=== PATIENT | female | born 1950 | race Caucasian/White ===

== ENCOUNTER → 2017-07-26 | Outpatient (CLI) | payer OTHER ==
--- NOTE | 2017-07-26 10:42 | VAS ---
HISTORY: Concern for carotid artery stenosis. CVA. Technique: Multiple faust scale and color flow Doppler images of the right and left carotid arterial s ystem were obtained. The vertebral arterial system was evaluated as well. Findings: Nonocclusive color flow Doppler is seen throughout the right and left carotid arterial system. No hem odynamically significant carotid arterial stenosis is seen based on velocity criteria. There is mild to moderate atherosclerosis and plaque formation of the bilateral carotid bulbs and proximal ICAs wit h associated intimal thickening but without evidence for high-grade stenosis (>70%) or occlusion of t he carotid arteries. The right and left vertebral artery demonstrate antegrade flow. IMPRESSION: [id number] atherosclerosis and plaque formation of the bilateral carotid bulbs and proximal ICA s with associated carotid intimal thickening and with elevated velocities seen in the left internal c arotid artery in the 50-69% stenosis range, based on carotid velocity. Appropriate, antegrade, vertebral arterial flow. Peak right ICA velocity: 89 cm/sec Peak right CCA velocity: 78 cm/sec Peak left ICA velocity: 123 cm/sec Peak left CCA velocity: 56 cm/sec Right ICA to CCA ratio: 1.7. Left ICA to CCA ratio: 2.4. Reported By:
--- NOTE | 2017-07-26 11:04 | MRI ---
MRA HEAD WITHOUT CONTRAST CLINICAL HISTORY: 67-year-old female with headache and blurred vision. COMPARISONS: None. TECHNIQUE: 3-D time of flight magnetic resonance angiographic images of the [place] of [place] were obt ained and presented as maximum intensity projection images in rotating format. FINDINGS: Right dominant vertebral artery. The basilar artery is normal in appearance and gives off normal bila teral superior cerebellar and left posterior cerebral arteries. origin right posterior cerebral artery supplied by moderate caliber right posterior communicating artery. Left posterior communicati ng artery is not visualized. The internal carotid arteries are normal from the distal cervical segmen ts to the carotid terminus. The middle and left anterior cerebral arteries are normal in course and c aliber. Dominant left A1 with diminutive caliber right A1 segment. There is a small caliber anterior communicating artery. IMPRESSION: 1. No aneurysm, high-grade stenosis, complete occlusion, dissection or vascular malformation. 2. Normal anatomic vascular variants as described above. Reported By:
--- NOTE | 2017-07-26 11:23 | MRI ---
MRI BRAIN WITHOUT CONTRAST CLINICAL HISTORY: 67-year-old female with headache and blurred vision. COMPARISON: None. TECHNIQUE: Multiplanar, multisequence MR images of the brain were obtained without contrast. FINDINGS: There is no evidence of diffusion restriction. The craniocervical junction is normal. Parti ally empty sella. Pituitary and optic nerve complex are otherwise normal. Multifocal confluent and pu nctate T2 FLAIR signal hyperintensities are present within the periventricular and supraventricular w mirna matter that are nonspecific in appearance but most likely to represent microvascular white matte r ischemic changes. Normal signal characteristics and morphology are demonstrated within the cerebral cortex, corpus callosum, deep faust nuclei, brainstem and cerebellum. The major vascular flow voids, to include the dural venous sinuses, are intact. No abnormal susceptibility on gradient imaging. Age advanced cortical volume loss is present, with commensurate sulcal and ventricular prominence. The ba silar cisterns are normal. The orbits and globes are within normal limits. The paranasal sinuses, tympanic cavities and mastoids are clear. IMPRESSION: 1. No acute ischemic or hemorrhagic insult. 2. Moderate, chronic microvascular white matter ischemic insult with associated volume loss. Reported By:
== END ==
LOC: RAD 08:39
PROVIDERS: ATTEND Psychiatry & Neurology Neurology
DX: I63.9 Cerebral infarction, unspecified (principal)
CPT/HCPCS: 70544; 70551; 93880

== ENCOUNTER → 2017-08-08 | Outpatient (CLI) | payer OTHER ==
[2017-08-08 10:00] LABS: CREATININE 0.96 mg/dL (0.55-1.02)
--- NOTE | 2017-08-08 11:36 | CT ---
Exam: CTA of the brain History: 67-year-old female with headache and blurred vision Comparison: MRI of the brain from 07/26/2017 Technique: Following contrast administration, CTA of the brain was performed with reformations in axi al, sagittal, and coronal planes. Automated exposure control techniques were used for this study. Findings: The intracranial aspect of the internal carotid arteries are widely patent. Anterior middle cerebral arteries are also patent. The right vertebral artery is diffusely small with the left vertebral arter y being dominant. Posterior circulation appears normal. No definite site of intracranial arterial adonay nosis or occlusion is seen on this exam. Impression: 1. Right vertebral artery is diffusely small with the left vertebral being dominant. 2. Remainder of the intracranial arterial anatomy is unremarkable. Reported By:
== END ==
LOC: RAD 09:21
PROVIDERS: ATTEND Psychiatry & Neurology Neurology
DX: I63.8 Other cerebral infarction (principal)
CPT/HCPCS: 36415; 70496; 82565; 84520; A4222

== ENCOUNTER → 2017-08-11 | Outpatient (CLI) | payer OTHER | LOC: RAD 13:58 | PROVIDERS: ATTEND Psychiatry & Neurology Neurology | DX: I63.8 Other cerebral infarction (principal) | CPT/HCPCS: 93306 ==